=== PATIENT | female | born 1985 | race Caucasian/White ===

== ENCOUNTER 2016-09-05 01:07 | Emergency (ER) | payer OTHER ==
[~2016-09-05] VITALS: Ht 160 cm; Wt 90.7 kg
[~2016-09-05 01:07] MED LIST: AC500T PO; ACHD5005 PO; ALBU2.5V4 IH; ALBU8.5H2 IH; AMOX500C2 PO; BENZ100C18 PO; CLC500CT PO; DCS100C PO; DESV50TA; DOXY100C2 PO; DULO30CA PO; DULO60CA6 PO; EPIN0.3P3 IM; ESCI20TA2 PO; FAMO20TA5 PO; GFCD10B PO; HCT25T; HYDR-3714 PO; HYDR1TAB66 PO; IBP600T1 PO; KCL10CCR PO; METH4TAB PO; NAPR-243 PO; POTA20TA15 PO; PRED20TA PO; PREN1TAB25 PO; SPIR100T37 PO; THR25T PO
[2016-09-05] MEDS ORDERED: RT-ALBUINH IH (01:18)
--- NOTE | 2016-09-05 01:26 | ED Dyspnea ---
General Chief Complaint: Respiratory Problems Stated Complaint: SOB,CHEST PAIN Nursing Triage Note: PT REPORTS SOA STARTING 3 DAYS AGO WITH MINIMAL COUGH. REPORTS CHEST WALL PAIN STARTING TODAY. Source of Information: Patient, RN Notes Reviewed Exam Limitations: No Limitations History of Present Illness Time Seen by Provider: 01:25 Initial Comments As above and below. SOA x 3 days. (+) smoker although hasn't smoked last 3 days. No known fever. No discolored sputum. (+) inspiratory chest pain beginning today, 09/04. Timing/Duration: Constant Severity: Moderate Activities at Onset: None Prior Episodes/Possible Cause: Unknown Cause Modifying Factors: Improves With Activity (inspiration), Worse With Coughing Associated Symptoms: Chest Pain (inspiratory), Cough Allergies and Home Medications Allergies Coded Allergies: No Known Drug Allergies (Unverified , 04/04/10) Home Medications Albuterol Sulfate 6.7 Gm Hfa.aer.ad, 2 PUFF IH Q6H PRN for SHORTNESS OF BREATH, (Reported) Hydrocodone Bit/Acetaminophen 1 Tab Tab, 1-2 TAB PO Q4HR PRN for PAIN, #50 Prescribed by: TACHO SALAZAR on 08/28/14 1019 Methylprednisolone 4 Mg Tab.ds.pk, 4 MG PO UD, #1 Ref 0 Prescribed by: PIERO STALLINGS on 09/05/16 0251 Tramadol HCl 50 Mg Tablet, 50-100 MG PO Q6H PRN for PAIN, #20 Ref 0 Prescribed by: PIERO STALLINGS on 09/05/16 0251 Constitutional: see HPI Respiratory: see HPI, cough, dyspnea on exertion, short of breath Cardiovascular: see HPI, chest pain : No All Other Systems Reviewed Negative Unless Noted: Yes (Negative excepted noted.) Past Giluzcb-Hzbjyt-Wzyfmm Hx Patient Social History Alcohol Use: Occasionally Uses Recreational Drug Use: No Smoking Status: Current Everyday Smoker Recent Foreign Travel: No Contact w/Someone Who Travel: No Recent Infectious Disease Expo: No Recent Hopitalizations: No Immunizations Up To Date Tetanus Booster (TDap): Less than 5yrs PED Vaccines UTD: Yes Date of Pneumonia Vaccine: Nov 13, 2012 Surgeries HX Surgeries: Yes Surgeries: Section, Tonsillectomy Respiratory Hx Respiratory Disorders: Yes Respiratory Disorders: Chronic Bronchitis Cardiovascular Hx Cardiac Disorders: No Neurological Hx Neurological Disorders: No Reproductive System Hx Reproductive Disorders: 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 Genitourinary Hx Genitourinary Disorders: No Gastrointestinal Hx Gastrointestinal Disorders: No Musculoskeletal Hx Musculoskeletal Disorders: Yes (L5 S1 Bulge) Endocrine Hx Endocrine Disorders: Yes (hypoglycemia) HEENT HX ENT Disorders: No Cancer Hx Cancer: No Psychosocial Hx Psychiatric Problems: Yes Behavioral Health Disorders: Anxiety, Depression Integumentary HX Skin/Integumentary Disorder: Yes (recurrent episodes of hives) Blood Transfusions Hx Blood Disorders: No Adverse Reaction to a Blood Tr: No Family Medical History Significant Family History: Cancer, DVT/PE, Diabetes, Stroke Family Medial History: Asthma 19 MOTHER Breast 19 MOTHER Completed stroke 19 FATHER Diabetes mellitus 19 FATHER Hypercholesterolemia 19 FATHER Hypertension 19 FATHER Physical Exam Vital Signs Vital Sign - Last 12Hours 09/05/16 09/05/16 01:15 02:26 Temp 97.9 Pulse 78 Resp 20 B/P (MAP) 130/59 Pulse Ox 98 Capillary Refill : Less Than 3 Seconds General Appearance: WD/WN, Mild Distress, Obese HEENT: Pharynx Normal Neck: Normal Inspection Respiratory: No Respiratory Distress, Decreased Breath Sounds Cardiovascular: Regular Rate, Rhythm Rectal: Deferred Neurologic/Psychiatric: Alert, Oriented x3, No Motor/Sensory Deficits Skin: Warm/Dry Progress/Results/Core Measures Results/Orders My Orders Orders - PIERO STALLINGS DO Chest Pa/Lat (2 View) (09/05/16 01:24) Albuterol/Ipra Inhalation Soln (Duoneb I (09/05/16 02:15) Svn Sm Volume Nebulizer Rt-Rfs (09/05/16 02:06) Dexamethasone Pf Injection (Decadron Pf (09/05/16 02:15) Ketorolac Injection (Toradol Injection) (09/05/16 02:15) Medications Given in ED Current Medications Medications Dose Ordered Sig/Donny Route Start Time Stop Time Status Last Admin Dose Admin Albuterol/ Ipratropium 3 ml ONCE ONCE INH 09/05/16 02:15 09/05/16 02:16 DC 09/05/16 02:25 3 ML Dexamethasone Sodium Phosphate 10 mg ONCE ONCE IM 09/05/16 02:15 09/05/16 02:16 DC 09/05/16 02:35 10 MG Ketorolac Tromethamine 30 mg ONCE ONCE IM 09/05/16 02:15 09/05/16 02:16 DC 09/05/16 02:35 30 MG Vital Signs/I&O Vital Sign - Last 12Hours 09/05/16 09/05/16 01:15 02:26 Temp 97.9 Pulse 78 Resp 20 B/P (MAP) 130/59 Pulse Ox 98 Blood Pressure Mean: 82 Departure Impression Impression: Primary Impression: Pleurisy Additional Impressions: Bronchitis Tobacco abuse Disposition: 01 HOME, SELF-CARE Condition: Improved Departure-Patient Inst. Decision time for Depature: 02:48 Referrals: TEZ GROVES MD (PCP) Primary Care Physician Patient Instructions: Acute Bronchitis, Adult (DC), Pleuritic Chest Pain (DC) Scripts Tramadol HCl (Tramadol HCl) 50 Mg Tablet 50-100 MG PO Q6H Y for PAIN, #20 TAB 0 Refills Prov: PIERO STALLINGS DO 09/05/16 Methylprednisolone (Medrol) 4 Mg Tab.ds.pk 4 MG PO UD, #1 PKG 0 Refills Prov: PIERO STALLINGS DO 09/05/16 PIERO STALLINGS DO Sep 05, 2016 01:26
[2016-09-05] MEDS ORDERED: KETOROLAC 30 MG/ML VIAL IM ONE (02:15)
[2016-09-05] MEDS ORDERED: DEXAMETHASONE PF 10 MG/ML (DECADRON) VIAL IM ONE (02:15)
[2016-09-05] MEDS ORDERED: RT-ALBUTEROL/IPRATROPIUM 3 ML (DUONEB) VIAL INH ONE (02:15)
[2016-09-05] MEDS ORDERED: TRAM50TA2 PO (02:51)
[2016-09-05] MEDS ORDERED: METH4TAB PO (02:51)
[2016-09-05 03:04] VITALS: BP 131/79
--- NOTE | 2016-09-05 08:02 | Diagnostic Imaging Report ---
INDICATION: Cough and congestion PA and lateral chest obtained at 1:48 a.m. Heart and mediastinal silhouette are normal in appearance. The lungs are clear. There is no pneumothorax or pleural fluid. IMPRESSION: Negative chest. Dictated by: Dictated on workstation # [id number]
--- OUTSIDE RECORDS SUMMARY | 2016-10-08 12:37 | XMS REPORT | Continuity of Care Document ---
Author Author [facility] Organization [facility] Address Unknown Phone Unavailable Allergies Active Description Code Type Severity Reaction Onset Reported/Identified Relationship to Patient Clinical Status Yes No Known Drug Allergies [id number] Drug Allergy Unknown N/ A 04/04/2010 Medications Problems Date Dx Coded Attending Type Code Diagnosis Diagnosed By 11/03/2009 Ot 276.8 11/03/2009 Ot 466.0 11/03/2009 Ot 786.2 11/03/2009 Ot 786.52 11/03/2009 Ot 794.31 11/03/2009 Ot E944.3 04/04/2010 Ot 305.1 04/04/2010 Ot 490 04/04/2010 Ot 786.2 05/13/2011 Ot 305.1 05/13/2011 Ot 490 05/13/2011 Ot 786.2 01/19/2012 Ot 466.0 01/19/2012 Ot 786.05 01/19/2012 Ot 786.2 06/04/2012 Ot 564.00 06/05/2014 JEANMARIE BELLEP Ot 793.89 06/05/2014 JEANMARIE BELLEP Ot V16.3 06/30/2014 SUSHIL LOPEZ MD Ot 649.63 08/25/2014 JEANMARIE BELLE SUPPLY AIDE Ot 793.89 08/25/2014 JEANMARIE BELLE SUPPLY AIDE Ot V16.3 08/25/2014 SUSHIL LOPEZ MD Ot 649.63 08/27/2014 JEANMARIE BELLEP Ot 793.89 08/27/2014 JEANMARIE BELLEP Ot V16.3 08/27/2014 SUSHIL LOPEZ MD Ot 649.63 08/28/2014 JEANMARIE BELLEP Ot 793.89 08/28/2014 JEANMARIE BELLE SUPPLY AIDE Ot V16.3 08/28/2014 SUSHIL LOPEZ MD Ot 649.63 08/28/2014 JOHN DOMÍNGUEZ, SUSHIL Valdivia Ot 285.1 08/28/2014 JOHN DOMÍNGUEZ, SUSHIL Valdivia Ot 648.21 08/28/2014 JOHN DOMÍNGUEZ, SUSHIL Valdivia Ot 652.21 08/28/2014 JOHN DOMÍNGUEZ, SUSHIL Valdivia Ot V27.0 09/08/2014 JEANMARIE BELLE SUPPLY AIDE Ot 793.89 09/08/2014 JEANMARIE BELLE SUPPLY AIDE Ot V16.3 09/08/2014 JOHN DOMÍNGUEZ, SUSHIL Valdivia Ot 649.63 09/14/2014 ALONZO DOMÍNGUEZ, JORGE LUIS T Ot 708.9 09/14/2014 ALONZO DOMÍNGUEZ, JORGE LUIS T Ot 782.3 09/14/2014 ALONZO DOMÍNGUEZ, JORGE LUIS T Ot 786.1 10/15/2014 Ot 649.63 10/15/2014 JEANMARIE BELLE SUPPLY AIDE Ot 793.89 10/15/2014 JEANMARIE BELLE SUPPLY AIDE Ot V16.3 10/15/2014 JOHN DOMÍNGUEZ, SUSHIL Valdivia Ot 649.63 09/30/2015 JOHN DOMÍNGUEZ, SUSHIL Valdivia Ot 649.63 UTERINE SIZE DATE DISCREPANCY, ANTEPARTU 10/28/2015 JOHN DOMÍNGUEZ, SUSHIL Valdivia Ot 649.63 UTERINE SIZE DATE DISCREPANCY, ANTEPARTU 11/15/2015 JOHN DOMÍNGUEZ, SUSHIL Valdivia Ot 649.63 UTERINE SIZE DATE DISCREPANCY, ANTEPARTU 11/15/2015 JOHN DOMÍNGUEZ, SUSHIL Valdivia Ot 649.63 UTERINE SIZE DATE DISCREPANCY, ANTEPARTU 09/05/2016 PIERO STALLINGS DO Ot E66.9 OBESITY, UNSPECIFIED 09/05/2016 PIERO STALLINGS DO Ot F17.210 NICOTINE DEPENDENCE, CIGARETTES, UNCOMPL 09/05/2016 PIERO STALLINGS DO Ot J40 BRONCHITIS, NOT SPECIFIED ACUTE OR CH 09/05/2016 PIERO STALLINGS DO Ot R06.02 SHORTNESS OF BREATH 09/05/2016 PIERO STALLINGS DO Ot R09.1 PLEURISY 09/06/2016 PIERO STALLINGS DO Ot E66.9 OBESITY, UNSPECIFIED 09/06/2016 PIERO STALLINGS DO Ot F17.210 NICOTINE DEPENDENCE, CIGARETTES, UNCOMPL 09/06/2016 PIERO STALLINGS DO Ot J40 BRONCHITIS, NOT SPECIFIED ACUTE OR CH 09/06/2016 PIERO STALLINGS DO Ot R06.02 SHORTNESS OF BREATH 09/06/2016 PIERO STALLINGS DO Ot R09.1 PLEURISY Procedures Results Encounters ACCT No. Visit Date/Time Discharge Status Pt. Type Provider Facility Loc./Unit Complaint [id number] 09/05/2016 01:09:00 2016 03:05:00 DIS Emergency PIERO STALLINGS DO [facility] ER SOB,CHEST PAIN [id number] 09/14/2014 14:36:00 2014 18:28:00 DIS Emergency ALONZO DOMÍNGUEZ, JORGE LUIS Kunz [facility] ER [id number] 08/25/2014 21:54:00 2014 16:05:00 DIS Inpatient SUSHIL LOPEZ MD [facility] LDRP [id number] 06/05/2014 09:48:00 2014 23:59:59 CLS Outpatient SUSHIL LOPEZ MD [facility] RAD [id number] 07/17/2013 13:29:00 2013 23:59:59 CLS Outpatient JEANMARIE BELLE SUPPLY AIDE [facility] RAD [id number] 11/10/2012 17:00:00 2012 14:00:00 DIS Inpatient [id number] 06/04/2012 18:26:00 Document Registration [id number] 04/03/2012 09:53:00 Document Registration [id number] 01/19/2012 20:11:00 Document Registration [id number] 05/13/2011 05:20:00 Document Registration [id number] 04/04/2010 08:45:00 Document Registration [id number] 11/03/2009 07:18:00 Document Registration
== END 2016-09-05 03:05 | disposition home or self-care (01) ==
LOC: EDUNIT# 01:07 → ER 01:09
DX: R09.1 Pleurisy (principal); J40 Bronchitis, not specified as acute or chronic; E66.9 Obesity, unspecified; F17.210 Nicotine dependence, cigarettes, uncomplicated
CPT/HCPCS: 71020; 94640; 96372; 99282

== ENCOUNTER 2017-05-03 14:35 | Emergency (ER) | payer SELFPAY ==
[~2017-05-03] VITALS: Ht 160 cm; Wt 99.8 kg
[~2017-05-03 14:35] MED LIST changes: +RT-ALBUINH IH; +TRAM50TA2 PO
--- OUTSIDE RECORDS SUMMARY | 2017-05-03 14:47 | XMS REPORT | Continuity of Care Document ---
Author Author [facility] Organization [facility] Address Unknown Phone Unavailable Allergies Active Description Code Type Severity Reaction Onset Reported/Identified Relationship to Patient Clinical Status Yes No Known Drug Allergies [id number] Drug Allergy Unknown N/ A 04/04/2010 Medications [...] LOPEZ MD Ot 649.63 08/25/2014 JEANMARIE BELLE INTERNAL MEDICINE HOSPITALIST Ot 793.89 08/25/2014 JEANMARIE BELLE INTERNAL MEDICINE HOSPITALIST Ot V16.3 08/25/2014 SUSHIL LOPEZ MD Ot 649.63 08/27/2014 JEANMARIE BELLE INTERNAL MEDICINE HOSPITALIST Ot 793.89 08/27/2014 JEANMARIE BELLE INTERNAL MEDICINE HOSPITALIST Ot V16.3 08/27/2014 JOHN DOMÍNGUEZ, SUSHIL Valdivia Ot 649.63 08/28/2014 JEANMARIE BELLEP Ot 793.89 08/28/2014 JEANMARIE BELLEP Ot V16.3 08/28/2014 SUSHIL LOPEZ MD Ot 649.63 08/28/2014 JOHN DOMÍNGUEZ, SUSHIL Valdivia Ot 285.1 08/28/2014 JOHN DOMÍNGUEZ, SUSHIL Valdivia Ot 648.21 08/28/2014 JOHN DOMÍNGUEZ, SUSHIL Valdivia Ot 652.21 08/28/2014 JOHN DOMÍNGUEZ, SUSHIL Valdivia Ot V27.0 09/08/2014 JEANMARIE BELLE INTERNAL MEDICINE HOSPITALIST Ot 793.89 09/08/2014 JEANMARIE BELLE INTERNAL MEDICINE HOSPITALIST Ot V16.3 09/08/2014 JOHN DOMÍNGUEZ, SUSHIL Valdivia Ot 649.63 09/14/2014 ALONZO DOMÍNGUEZ, JORGE LUIS T Ot 708.9 09/14/2014 ALONZO DOMÍNGUEZ, JORGE LUIS T Ot 782.3 09/14/2014 ALONZO DOMÍNGUEZ, JORGE LUIS T Ot 786.1 10/15/2014 Ot 649.63 10/15/2014 JEANMARIE BELLE INTERNAL MEDICINE HOSPITALIST Ot 793.89 10/15/2014 JEANMARIE BELLE INTERNAL MEDICINE HOSPITALIST Ot V16.3 10/15/2014 JOHN DOMÍNGUEZ, SUSHIL Valdivia [...] Status Pt. Type Provider Facility Loc./Unit Complaint [id number] 09/05/2016 01:09:00 2016 03:05:00 DIS Emergency PIERO STALLINGS DO [facility] ER SOB,CHEST PAIN [id number] 09/14/2014 14:36:00 2014 18:28:00 DIS Emergency ALONZO DOMÍNGUEZ, JORGE LUIS Kunz [facility] ER [id number] 08/25/2014 21:54:00 2014 16:05:00 DIS Inpatient SUSHIL LOPEZ MD [facility] LDRP [id number] 06/05/2014 09:48:00 2014 23:59:59 CLS Outpatient SUSHIL LOPEZ MD [facility] RAD [id number] 07/17/2013 13:29:00 2013 23:59:59 CLS Outpatient JEANMARIE EBLLE INTERNAL MEDICINE HOSPITALIST [facility] RAD [id number] 11/10/2012 17:00:00 2012 14:00:00 DIS Inpatient [id number] 05/03/2017 14:38:00 ACT Emergency RADHA MOORE MD [facility] ER EYES SWELLING,ALLERGIES [id number] 06/04/2012 18:26:00 Document Registration [id number] 04/03/2012 09:53:00 Document Registration [id number] 01/19/2012 20:11:00 Document Registration [id number] 05/13/2011 05:20:00 Document Registration [id number] 04/04/2010 08:45:00 Document Registration [id number] 11/03/2009 07:18:00 Document Registration
[2017-05-03] MEDS ORDERED: DEXAMETHASONE PF 10 MG/ML (DECADRON) VIAL IM STA (16:00)
--- NOTE | 2017-05-03 16:07 | ED EENT ---
History of Present Illness General Chief Complaint: Allergic Reaction Stated Complaint: EYES SWELLING,ALLERGIES Nursing Triage Note: AMB TO ROOM C/O RED ITCHEY EYES. REQUEST SHOT FOR. History of Present Illness Time seen by provider: 15:50 Initial Comments 31-year-old female reports for swelling bilateral eyelids. For the last 4 years the patient has been going through allergy testing with an project coordinator in [place]. She intermittently has swelling and rashes. She was treated the summer in the emergency department and prescribed an EpiPen, the patient reports due to caught she was not able to obtain this. She currently denies a rash, difficulty breathing, swelling of her tongue or lips. Her only complaint is swelling to bilateral eyes that began this morning. She denies any new eye makeup, detergents, food or other causative factors. Timing/Duration: abrupt, this morning Location: eye (R), eye (L) Prearrival Treatment: over the counter meds (Benadryl 25 mg by mouth 1 this morning) Associated Symptoms: denies symptoms Allergies and Home Medications Allergies Coded Allergies: No Known Drug Allergies (Unverified , 04/04/10) Home Medications Olopatadine 5 Ml Drops, 5 ML OP DAILY, #1 Ref 0 1 gtt each eye daily Prescribed by: ANJANA MONTOYA on 05/03/17 1613 Prednisone 20 Mg Tab, 20 MG PO DAILY, #20 2 tablets twice daily for 2 days, 1 tablet twice daily for 2 days, 1 table once daily for 2 days. Prescribed by: ANJANA MONTOYA on 05/03/17 1608 Review of Systems Constitutional: no symptoms reported, see HPI Eyes: See HPI, Inflammation (bilateral upper eyelids) : No All Other Systems Reviewed Negative Unless Noted: Yes Past Oajawgd-Zalcpq-Dttolo Hx Patient Social History Alcohol Use: Occasionally Uses Recreational Drug Use: No (SMOKES 5 CIGS A DAY) Smoking Status: Current Everyday Smoker Recent Foreign Travel: No Contact w/Someone Who Travel: No Recent Infectious Disease Expo: No Recent Hopitalizations: No Immunizations Up To Date Tetanus Booster (TDap): Less than 5yrs PED Vaccines UTD: Yes Date of Pneumonia Vaccine: Nov 13, 2012 Surgeries History of Surgeries: Yes Surgeries: Section, Tonsillectomy Respiratory History of Respiratory Disorde: Yes Respiratory Disorders: Chronic Bronchitis Cardiovascular History of Cardiac Disorders: No Neurological History of Neurological Disord: No Reproductive System 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 Gastrointestinal History of Gastrointestinal Di: No Musculoskeletal History of Musculoskeletal Dis: Yes (L5 S1 Bulge) Endocrine History of Endocrine Disorders: Yes (hypoglycemia) Cancer History of Cancer: No Psychosocial History of Psychiatric Problem: Yes Behavioral Health Disorders: Anxiety, Depression Integumentary History of Skin or Integumenta: Yes (recurrent episodes of hives) Blood Transfusions History of Blood Disorders: No Adverse Reaction to a Blood Tr: No Reviewed Nursing Assessment Reviewed/Agree w Nursing PMH: Yes Family Medical History Significant Family History: Cancer, DVT/PE, Diabetes, Stroke Family Medial History: Asthma 19 MOTHER Breast 19 MOTHER Completed stroke 19 FATHER Diabetes mellitus 19 FATHER Hypercholesterolemia 19 FATHER Hypertension 19 FATHER Physical Exam Vital Signs Vital Sign - Last 12Hours 05/03/17 15:14 Temp 97.7 Pulse 100 Resp 18 B/P (MAP) 125/74 (91) Pulse Ox 99 General Appearance: WD/WN, no apparent distress Eyes: bilateral eye PERRL, bilateral eye EOMI, bilateral eye lid inflammation Ears: bilateral ear auricle normal, bilateral ear canal normal, bilateral ear TM normal Nose: normal inspection, No active bleeding Mouth/Throat: normal mouth inspection, pharynx normal Neck: non-tender, full range of motion, supple, normal inspection, No lymphadenopathy (R), No lymphadenopathy (L) Cardiovascular: normal peripheral pulses, regular rate, rhythm, no murmur Respiratory: chest non-tender, lungs clear, normal breath sounds Gastrointestinal: normal bowel sounds, non tender, soft Skin: normal color, warm/dry, No rash Progress/Results/Core Measures Results/Orders My Orders Orders - ANJANA MONTOYA Dexamethasone Pf Injection (Decadron Pf (05/03/17 16:00) Dexamethasone Injection (Decadron Inject (05/03/17 16:15) Medications Given in ED Current Medications Medications Dose Ordered Sig/Donny Route Start Time Stop Time Status Last Admin Dose Admin Dexamethasone Sodium Phosphate 10 mg ONCE ONCE IM 05/03/17 16:15 05/03/17 16:17 DC 05/03/17 16:21 10 MG Vital Signs/I&O Vital Sign - Last 12Hours 05/03/17 05/03/17 15:14 16:26 Temp 97.7 97.7 Pulse 100 100 Resp 18 18 B/P (MAP) 125/74 (91) Pulse Ox 99 99 Blood Pressure Mean: 91 Departure Impression Impression: Primary Impression: Swelling of eyelid Qualified Codes: H02.849 - Edema of unspecified eye, unspecified eyelid Disposition: 01 HOME, SELF-CARE Condition: Improved Departure-Patient Inst. Decision time for Depature: 16:10 Referrals: TEZ GROVES MD (PCP) Primary Care Physician Patient Instructions: Contact Dermatitis (DC) Add. Discharge Instructions: Cool washcloth eyes every 2 hours while awake. Take prednisone as directed. Use eyedrops as directed. Benadryl 25 mg every 8 hours. Follow-up with project coordinator in [place]. If difficulty breathing, swelling of the tongue, or swelling of the lips, return to emergency department immediately. Follow-up with primary care provider if symptoms are not improving in 2-3 days. All discharge instructions reviewed with patient and/or family. Voiced understanding. Scripts Olopatadine (Patanol) 5 Ml Drops 5 ML OP DAILY, #1 DROPS 0 Refills 1 gtt each eye daily Prov: ANJANA MONTOYA 05/03/17 Prednisone (Prednisone) 20 Mg Tab 20 MG PO DAILY, #20 TAB 2 tablets twice daily for 2 days, 1 tablet twice daily for 2 days, 1 table once daily for 2 days. Prov: ANJANA MONTOYA 05/03/17 ANJANA MONTOYA May 03, 2017 16:07
[2017-05-03] MEDS ORDERED: PRD20T PO (16:08)
[2017-05-03] MEDS ORDERED: NF-OLOP5ML OP (16:13)
[2017-05-03] MEDS ORDERED: DEXAMETHASONE 10 MG/ML (DECADRON) 1 ML VIAL IM ONE (16:15)
[2017-05-03 16:26] VITALS: BP 125/74
== END 2017-05-03 16:25 | disposition home or self-care (01) ==
LOC: EDUNIT# 14:35 → ER 14:38
DX: H57.8 Other specified disorders of eye and adnexa (principal); F41.9 Anxiety disorder, unspecified; F32.9 Major depressive disorder, single episode, unspecified; F17.210 Nicotine dependence, cigarettes, uncomplicated; Z80.3 Family history of malignant neoplasm of breast; Z87.59 Personal history of other complications of pregnancy, childbirth and the puerperium; Z90.89 Acquired absence of other organs; Z87.09 Personal history of other diseases of the respiratory system
CPT/HCPCS: 99284

== ENCOUNTER 2020-08-15 14:49 | Emergency (ER) | payer BC ==
[~2020-08-15] VITALS: Ht 162 cm; Wt 100.0 kg
[~2020-08-15 14:49] MED LIST changes: +NF-OLOP5ML OP; +PRD20T PO; -TRAM50TA2 PO; +TRM50T PO
--- NOTE | 2020-08-15 15:25 | Diagnostic Imaging Report ---
Indication: Left knee pain. Time of exam: 3:17 PM 3 views of the left knee were obtained. Alignment is normal. Joint spaces are well maintained. Articular surfaces are smooth. No fracture, dislocation or effusion is seen. Impression: No acute abnormality is detected. Dictated by: Dictated on workstation # [id number]
--- NOTE | 2020-08-15 15:46 | ED Lower Extremity ---
General Chief Complaint: Lower Extremity Stated Complaint: L KNEE PAIN Nursing Triage Note: TO ROOM PER W/C REPORTS LAST NIGHT WAS LIFTING A FRIEND THAT WEIGHTED APX 135 LBS WHEN SHE PICKED HIM UP FLET A POP IN L KNEE AND BURNING UNABLE TO PUT ANY WT ON IT. Nursing Sepsis Screen: No Definite Risk Source: patient Exam Limitations: no limitations History of Present Illness Date Seen by Provider: Aug 15, 2020 Time Seen by Provider: 15:00 Initial Comments Here with complaint of left knee pain. States that she was hugging a friend and lifted him up when she felt her knee buckle and pop. States now she is unable to put any weight on it. Denies other injury. Did not fall to the ground but did sit down hard. States pain is worse when it is fully extended. Better when slightly flexed or bent some. Pain worse on the medial aspect. Onset: yesterday (Last night) Severity: moderate Pain/Injury Location: left knee Method of Injury: unknown Modifying Factors: Improves With Immobilization; Worse With Movement Allergies and Home Medications Allergies Coded Allergies: No Known Drug Allergies (Unverified , 04/04/10) Home Medications Olopatadine 5 Ml Drops, 5 ML OP DAILY 1 gtt each eye daily Prescribed by: ANJANA MONTOYA on 05/03/17 1613 Prednisone 20 Mg Tab, 20 MG PO DAILY 2 tablets twice daily for 2 days, 1 tablet twice daily for 2 days, 1 table once daily for 2 days. Prescribed by: ANJANA MONTOYA on 05/03/17 1608 Patient Home Medication List Home Medication List Reviewed: Yes Review of Systems Constitutional: no symptoms reported Respiratory: no symptoms reported Cardiovascular: no symptoms reported Musculoskeletal: joint pain, joint swelling, muscle pain Skin: change in color (Few bruises to the lower leg on the left); No lesions Psychiatric/Neurological: Denies Numbness, Denies Tingling Past Limxnul-Gozjds-Gtxdas Hx Past Med/Social Hx: Reviewed Nursing Past Med/Soc Hx Patient Social History Alcohol Use: Occasionally Uses Smoking Status: Never a Smoker Recent Infectious Disease Expo: No Recent Hopitalizations: No Immunizations Up To Date Tetanus Booster (TDap): Less than 5yrs PED Vaccines UTD: Yes Date of Pneumonia Vaccine: Nov 13, 2012 Past Medical History Surgeries: Yes Section, Tonsillectomy Respiratory: Yes Chronic Bronchitis Cardiac: No Neurological: No Reproductive Disorders: No PROMOTIONS INTERN History: IUD Gastrointestinal: No Musculoskeletal: Yes (L5 S1 Bulge) Endocrine: Yes (hypoglycemia) Cancer: No Psychosocial: Yes Anxiety, Depression Integumentary: Yes (recurrent episodes of hives) Blood Disorders: No Adverse Reaction/Blood Tranf: No Family Medical History Reviewed Nursing Family Hx Asthma 19 MOTHER Breast 19 MOTHER Completed stroke 19 FATHER Diabetes mellitus 19 FATHER Hypercholesterolemia 19 FATHER Hypertension 19 FATHER Cancer, DVT/PE, Diabetes, Stroke Physical Exam Vital Signs Vital Signs - First Documented 08/15/20 14:54 Temp 36.0 Pulse 94 Resp 18 B/P (MAP) 117/70 (86) Capillary Refill : Less Than 3 Seconds Height, Weight, BMI Height: 5'3.00" Weight: 220lbs. 2.0oz. [id number]; 38.00 BMI Method:Stated General Appearance: WD/WN, no apparent distress Cardiovascular: regular rate, rhythm, no murmur Respiratory: lungs clear, normal breath sounds Knees: right knee non-tender, right knee normal inspection, right knee normal range of motion; left knee joint effusion (Mild medial aspect), left knee soft tissue tenderness, left knee other (Tender around the knee with medial greater than lateral. Able to straight leg raise. Reports pain with axial loading. Negative drawer although does increase pain. Negative medial/lateral laxity.) Neurologic/Tendon: normal sensation, normal motor functions Neurologic/Psychiatric: alert, oriented x 3 Skin: warm/dry, ecchymosis (Ecchymosis 2 x 2 centimeter below knee by about 8 cm to the lateral aspect and to the area near the foot medially.) Progress/Results/Core Measures Results/Orders My Orders Orders - RADHA MOORE MD Knee, Left, 3 Views (08/15/20 15:05) Vital Signs/I&O 08/15/20 14:54 Temp 36.0 Pulse 94 Resp 18 B/P (MAP) 117/70 (86) Blood Pressure Mean: 86 Progress Progress Note : Progress Note Seen and evaluated. X-ray left knee ordered. Patient declined pain medicine at this point but has excepted crutches. Monitor patient. 1555: Luis Manuel wrap applied. Crutches given. Crutch teaching done. No acute fracture. Discharged home with return precautions. Patient verbalized understanding of instructions and agreement with plan. Departure Impression Primary Impression: Internal derangement of left knee Disposition: HOME, SELF-CARE Condition: Stable Departure-Patient Inst. Decision time for Depature: 15:54 Referrals: [facility] [place] (PCP/Family) Primary Care Physician Patient Instructions: Internal Derangement of the Knee Add. Discharge Instructions: All discharge instructions reviewed with patient and/or family. Voiced understanding. You may take ibuprofen 600 mg every 8 hours as needed for pain. You may also take Tylenol/acetaminophen 1000 mg every 8 hours as needed for pain. You may use ice packs to area of concern 20 minutes/h for the first 24 to 48 hours and then as needed. Use Luis Manuel wrap as needed. Use crutches as needed. Elevate the knee and leg to reduce swelling. Return for worse pain, swelling, numbness or other concerns as needed. Follow-up with your doctor in a few days for recheck and further evaluation including possible referral to orthopedics and/or MRI as needed. Work/School Note: Work Release Form Date Seen in the Emergency Department: Aug 15, 2020 Return to Work: Aug 17, 2020 Restrictions: No Restrictions RADHA MOORE MD Aug 15, 2020 15:46
[2020-08-15 16:16] VITALS: BP 117/70
== END 2020-08-15 16:11 | disposition home or self-care (01) ==
LOC: EDUNIT# 14:49 → ER 14:51
DX: M23.92 Unspecified internal derangement of left knee (principal); Z97.5 Presence of (intrauterine) contraceptive device; X50.1XXA Overexertion from prolonged static or awkward postures, initial encounter
CPT/HCPCS: 73562

== ENCOUNTER 2023-03-28 03:33 | Emergency (ER) | payer SELFPAY ==
[~2023-03-28] VITALS: Ht 160 cm; Wt 84.0 kg
--- NOTE | 2023-03-28 03:49 | ED GU-Female ---
General Chief Complaint: - Reproductive Stated Complaint: LOWER ABD PAIN Source: patient Exam Limitations: no limitations History of Present Illness Date Seen by Provider: Mar 28, 2023 Time Seen by Provider: 03:37 Initial Comments Patient is a 37-year-old female who presents to the emergency department with a chief complaint of lower abdominal pain. Patient was having intercourse approximately 30 minutes prior to arrival when she had sudden onset of intense sharp, crampy, achy abdominal pain. She has an IUD in place it has been there for the last for 5 years. Her last well woman exam was a little over a year ago. She has inconsistent spotty menstrual cycles. She denies dysuria urgency or frequency. She denies any abnormal vaginal discharge. No current vaginal bleeding. Nothing makes the pain any better or any worse. She did take some Tylenol prior to arrival. She is not nauseous. No issues with bowel movements. Last was 8 years ago. She is a G2, P2. Normally gets her "well woman" care through [facility]. Bedside test neg here in the ED Timing/Duration: just prior to arrival (30 min or so) Severity/Quality: severe, aching, cramping Location: vaginal Radiation: none Activities at Onset: sexual activity Associated Symptoms: abdominal pain Allergies and Home Medications Allergies Coded Allergies: No Known Drug Allergies (Unverified , 04/04/10) Patient Home Medication List Home Medication List Reviewed: Yes Olopatadine (Patanol) 5 Ml Drops, 5 ML OP DAILY Prescribed by: ANJANA MONTOYA on 05/03/17 1613 Prednisone (Prednisone) 20 Mg Tab, 20 MG PO DAILY Prescribed by: ANJANA MONTOYA on 05/03/17 1608 Review of Systems Review of Systems Constitutional: see HPI Respiratory: no symptoms reported Cardiovascular: no symptoms reported Gastrointestinal: abdominal pain Musculoskeletal: back pain (low back pain) Skin: no symptoms reported All Other Systemes Reviewed Negative Unless Noted: Yes Past Mkpelbv-Bkfwhf-Soxdik Hx Patient Social History Tobacco Use?: Yes Tobacco type used: Cigarettes Smoking Status: Current Everyday Smoker Substance use?: No Alcohol Use?: No Immunizations Up To Date Tetanus Booster (TDap): Less than 5yrs PED Vaccines UTD: Yes Past Medical History Surgeries: Yes Section, Tonsillectomy Respiratory: Yes Chronic Bronchitis Cardiac: No Neurological: No 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 Gastrointestinal: No Musculoskeletal: Yes (L5 S1 Bulge) Endocrine: Yes (hypoglycemia) Cancer: No Psychosocial: Yes Anxiety, Depression Integumentary: Yes (recurrent episodes of hives) Blood Disorders: No Adverse Reaction/Blood Tranf: No Family Medical History Asthma 19 MOTHER Breast 19 MOTHER Completed stroke 19 FATHER Diabetes mellitus 19 FATHER Hypercholesterolemia 19 FATHER Hypertension 19 FATHER Cancer, DVT/PE, Diabetes, Stroke Physical Exam Vital Signs Vital Signs - First Documented 03/28/23 03:39 Temp 37.2 Pulse 97 Resp 16 B/P (MAP) 114/61 (78) Pulse Ox 100 O2 Delivery Room Air Capillary Refill : Height, Weight, BMI Height: 5'3.00" Weight: 220lbs. 2.0oz. 99.794366ko; 38.00 BMI Method:Stated General Appearance: WD/WN, moderate distress HEENT: PERRL/EOMI Cardiovascular: regular rate, rhythm Respiratory: no respiratory distress, no accessory muscle use Gastrointestinal: soft, tenderness (suprapubic) Extremities: normal range of motion, normal inspection Neurologic/Psychiatric: alert, normal mood/affect, oriented x 3 Skin: normal color, warm/dry Progress/Results/Core Measures Suspected Sepsis SIRS Temperature: Pulse: Respiratory Rate: Blood Pressure / Mean: Results/Orders My Orders Orders - ALFREDO URRUTIA MD Urine Bedside (03/28/23 03:49) Abdomen/Kub 1view (03/28/23 03:49) Ketorolac Injection (Ketorolac Injection (03/28/23 04:00) Medications Given in ED Current Medications Medications Dose Ordered Sig/Donny Route Start Time Stop Time Status Last Admin Dose Admin Ketorolac Tromethamine 60 mg ONCE ONCE IM 03/28/23 04:00 03/28/23 04:01 DC 03/28/23 04:06 60 MG Vital Signs/I&O 03/28/23 03:39 Temp 37.2 Pulse 97 Resp 16 B/P (MAP) 114/61 (78) Pulse Ox 100 O2 Delivery Room Air Capillary Refill : Progress Note : Time: 04:50 Progress Note Patient seen and evaluated by me. Eval today includes physical exam, KUB xray. Pertinent physical exam findings include WDWN mildly obese female in mild distress due to abdominal pain. Her VS are stable. She has diffuse mild tenderness to palpation, worse lower abdomen. No involuntary guarding or heel tap. No signs of acute abdomen. Rest of her physical exam is unremarkable. ddx includes dislodged/malpositioned IUD, perforated uterus Xrays independently reviewed and interpreted by me. I can see the IUD positioned in the general area of the uterus. The orientation is horizontal (this is not the best modality for eval, however we do not have US at night). As she is having no abnormal vaginal bleeding and no signs of acute abdomen, I do not feel CT is warranted, nor emergent ultrasound. Patient was treated with toradol 60mg IM. After about 20 minutes patient was re-evaluated and her pain was completely resolved. I advised her we cannot be completely certain based on xray alone that the IUD has not penetrated the muscle wall of the uterus, but as she is pain free now, I feel that she can be safely followed up at the clinic for further evaluation. I advised if she has worsening pain, vomiting or develops vaginal bleeding, she needs to come back to the Emergency Department for re-evaluation. She is comfortable with the plan of care. Stable and improv ed at discharge. Departure Impression Primary Impression: Acute pelvic pain, female Additional Impression: concern for malpositioned IUD Disposition: 01 HOME, SELF-CARE Condition: Improved Departure-Patient Inst. Decision time for Depature: 04:57 Referrals: [facility] [place] (PCP/Family) Primary Care Physician Add. Discharge Instructions: You will need follow up at [facility] for an ultrasound to further evalua te the placement of your IUD. Please call today for a follow up. On your xray here, it is generally in the right area, but the xray cannot 100% confirm it has not been pushed through the uterus wall. If you have a return of severe pain, especially vomiting, fever, vaginal bleeding, please return to the Emergency Department for re-evakuation. You can take over the counter Ibuprofen 3 tablets (600mg) in 6-8 hours, with food. and repeat every 6 hours. Copy Copies To 1: KALEB NOVAK KATHRYN M MD Mar 28, 2023 03:49
[2023-03-28] MEDS ORDERED: KETOROLAC INJ 60 MG/2 ML VIAL IM ONE (04:00)
[2023-03-28 05:04] VITALS: BP 112/59
--- NOTE | 2023-03-28 06:28 | Diagnostic Imaging Report ---
INDICATION: IUD placement. FINDINGS: The bowel gas pattern is nonspecific. There are no abnormal abdominal calcifications. Lung bases are clear. There is no free air. An IUD overlying the area of the uterus. The osseous structures are unremarkable. IMPRESSION: Nonspecific bowel gas pattern. IUD overlying the expected location of the uterus. Dictated by: Dictated on workstation # [id number]
== END 2023-03-28 05:04 | disposition home or self-care (01) ==
LOC: EDUNIT# 03:33 → ER 03:34
DX: R10.2 Pelvic and perineal pain (principal); E66.9 Obesity, unspecified; F17.210 Nicotine dependence, cigarettes, uncomplicated; Z68.38 Body mass index [BMI] 38.0-38.9, adult
CPT/HCPCS: 74018; 84703; 96372